=== PATIENT | male | born 1950 | race Caucasian/White ===

== ENCOUNTER → 2016-09-06 | Outpatient (CLI) | payer MEDICARE, BC ==
[~2016-09-06] MED LIST: ASPI-515 GT; MORP20SO PO
== END | disposition home or self-care (01) ==
LOC: PETCFH 09:27 → MERGE 09:30
PROVIDERS: ATTEND Internal Medicine Hematology & Oncology
DX: C15.5 Malignant neoplasm of lower third of esophagus (principal); K76.9 Liver disease, unspecified; I70.0 Atherosclerosis of aorta
CPT/HCPCS: 78815; A9552

== ENCOUNTER → 2016-11-01 | Outpatient (CLI) | payer MEDICARE, BC ==
[~2016-11-01] MED LIST changes: +SUCR1ORA5 PO
== END | disposition home or self-care (01) ==
LOC: EDSTATUS 10-27 14:44 → ROC 08:19
PROVIDERS: ATTEND Radiology Radiation Oncology
DX: C15.9 Malignant neoplasm of esophagus, unspecified (principal)
CPT/HCPCS: G0463

== ENCOUNTER 2016-11-04 06:39 | Inpatient (IN) | payer MEDICARE, BC, OTHER ==
[~2016-11-04] VITALS: Ht 182.9 cm; Wt 69.6 kg
[~2016-11-04 06:39] MED LIST changes: -SUCR1ORA5 PO
[2016-11-04] MEDS ORDERED: SUCR1ORA5 PO (07:12)
[2016-11-04] MEDS ORDERED: SODIUM CHLORIDE 0.9% 1,000ML IVBOLUS ONE (07:30)
[2016-11-04] MEDS ORDERED: SODIUM CHLORIDE FLUSH 10ML SYR IVF ONE (07:30)
[2016-11-04 07:44] LABS: HEMATOCRIT 39.8 % (39.2-51.8); HEMOGLOBIN 13.8 g/dL (13.7-18.0); WHITE BLOOD COUNT 5.9 x10^3/uL (3.4-10)
[2016-11-04 07:58] LABS: ASPARTATE AMINO TRANSFERASE 20 U/L (15-37); BLOOD UREA NITROGEN 6 mg/dL (7-18)
[2016-11-04] MEDS ORDERED: ONDANSETRON 2MG/ML, 2ML IVPush ONE (08:30)
[2016-11-04] MEDS ORDERED: MORPHINE SULFATE 4 MG/ML, 1ML IVPush PRN (08:30)
[2016-11-04] MEDS ORDERED: MORPHINE SULFATE 4 MG/ML, 1ML ONE (08:32)
[2016-11-04] MEDS ORDERED: ONDANSETRON 2MG/ML, 2ML ONE (08:33)
[2016-11-04] MEDS ORDERED: OMNIPAQUE 350 MG/ML, 100ML BOTTLE ONE (08:53)
[2016-11-04] MEDS ORDERED: SODIUM CHLORIDE 0.9% 1,000 ML IV ONE (09:38)
[2016-11-04] MEDS ORDERED: HEPARIN 25,000 UNITS/500ML PMX 500 ML ONE (09:47)
[2016-11-04] MEDS ORDERED: HEPARIN 25,000 UNITS/500ML PMX 500 ML IV PRN (10:00)
[2016-11-04] MEDS ORDERED: HEPARIN 5,000 UNITS/ML, 1ML IV PRN (10:00)
[2016-11-04] MEDS ORDERED: HEPARIN 5,000 UNITS/ML, 1ML IV ONE (10:00)
[2016-11-04] MEDS ORDERED: HEPARIN 5,000 UNITS/ML, 1ML ONE (10:14)
[2016-11-04] MEDS ORDERED: ACETAMINOPHEN 325 MG TABLET PO PRN (11:00)
[2016-11-04] MEDS ORDERED: HYDROcodone/APAP 5/325 TABLET PO PRN (11:00)
[2016-11-04] MEDS ORDERED: POLYETHYLENE GLYCOL 17 GM PACKET PO PRN (11:00)
[2016-11-04] MEDS ORDERED: ONDANSETRON 2MG/ML, 2ML IVPush PRN (11:00)
[2016-11-04] MEDS ORDERED: DOCUSATE 100 MG CAPSULE PO PRN (11:00)
[2016-11-04] MEDS ORDERED: LABETALOL 5MG/ML, 20ML IVPush PRN (11:00)
[2016-11-04] MEDS ORDERED: BISACODYL 10 MG SUPP PR PRN (11:00)
[2016-11-04] MEDS: ENOXAPARIN 60 MG/0.6 ML SQ SCH (12:52)
[2016-11-04 13:05] VITALS: BP 105/69
[2016-11-04 13:44] VITALS: BP 114/68
[2016-11-04] MEDS: SUCRALFATE 1 GM/10 ML UDC PO SCH ×2 (16:15→21:04)
[2016-11-04] MEDS: morphine SULFATE 10 MG/ML, 1ML IVPush PRN ×2 (18:18→21:04)
[2016-11-04 20:02] VITALS: BP 122/76
[2016-11-04] MEDS: SODIUM CHLORIDE FLUSH 10ML SYR IVF SCH (21:05)
[2016-11-05 01:03] VITALS: BP 121/73
[2016-11-05 01:15] VITALS: BP 103/64
[2016-11-05] MEDS: ENOXAPARIN 60 MG/0.6 ML SQ SCH ×2 (01:19→13:05)
[2016-11-05] MEDS: morphine SULFATE 10 MG/ML, 1ML IVPush PRN ×5 (01:19→21:48)
[2016-11-05 04:57] LABS: BLOOD UREA NITROGEN 9 mg/dL (7-18)
[2016-11-05 05:14] LABS: HEMATOCRIT 35.1 % (39.2-51.8); WHITE BLOOD COUNT 7.9 x10^3/uL (3.4-10)
[2016-11-05 07:40] VITALS: BP 103/68
[2016-11-05] MEDS: ASPIRIN 81 MG TABLET EC PO SCH (08:56)
[2016-11-05] MEDS: SODIUM CHLORIDE FLUSH 10ML SYR IVF SCH ×2 (08:56→20:23)
[2016-11-05] MEDS: SUCRALFATE 1 GM/10 ML UDC PO SCH ×3 (08:56→20:23)
[2016-11-05 14:00] VITALS: BP 113/60
[2016-11-05] MEDS ORDERED: ALBUTEROL/IPRATROPIUM 2.5MG/0.5MG, 3 ML ONE (21:14)
[2016-11-05 21:24] VITALS: BP 104/62
[2016-11-05] MEDS ORDERED: ALBUTEROL/IPRATROPIUM 2.5MG/0.5MG, 3 ML NPPB PRN (21:30)
[2016-11-05] MEDS: ALBUTEROL/IPRATROPIUM 2.5MG/0.5MG, 3 ML NPPB SCH (21:30)
[2016-11-06] MEDS: ENOXAPARIN 60 MG/0.6 ML SQ SCH ×2 (01:04→12:05)
[2016-11-06 01:08] VITALS: BP 106/64
[2016-11-06 05:02] LABS: HEMATOCRIT 35.2 % (39.2-51.8); WHITE BLOOD COUNT 12.2 x10^3/uL (3.4-10)
[2016-11-06 05:18] LABS: BLOOD UREA NITROGEN 8 mg/dL (7-18)
[2016-11-06 05:38] LABS: DIFF TOTAL CELLS COUNTED 100 CELL DIFF
[2016-11-06 05:40] LABS: VERIFY COUNTS? YES
[2016-11-06 05:41] LABS: ANISOCYTOSIS 1+; POLYCHROMASIA 1+
[2016-11-06] MEDS: ALBUTEROL/IPRATROPIUM 2.5MG/0.5MG, 3 ML NPPB SCH ×4 (06:29→18:32)
[2016-11-06 07:24] VITALS: BP 117/59
[2016-11-06] MEDS: SODIUM CHLORIDE FLUSH 10ML SYR IVF SCH ×2 (08:07→20:49)
[2016-11-06] MEDS: ASPIRIN 81 MG TABLET EC PO SCH (08:07)
[2016-11-06] MEDS: SUCRALFATE 1 GM/10 ML UDC PO SCH ×3 (08:07→20:49)
[2016-11-06 16:58] VITALS: BP 107/57
[2016-11-06 18:30] VITALS: BP 98/53
[2016-11-07] MEDS: ENOXAPARIN 60 MG/0.6 ML SQ SCH ×2 (01:04→12:05)
[2016-11-07 01:06] VITALS: BP 103/62
[2016-11-07 05:41] LABS: BLOOD UREA NITROGEN 7 mg/dL (7-18)
[2016-11-07 05:43] LABS: HEMATOCRIT 31.9 % (39.2-51.8); HEMOGLOBIN 10.8 g/dL (13.7-18.0); WHITE BLOOD COUNT 7.8 x10^3/uL (3.4-10)
[2016-11-07] MEDS: ALBUTEROL/IPRATROPIUM 2.5MG/0.5MG, 3 ML NPPB SCH ×4 (06:17→18:45)
[2016-11-07 07:44] VITALS: BP 100/57
[2016-11-07] MEDS: ASPIRIN 81 MG TABLET EC PO SCH (07:57)
[2016-11-07] MEDS: SUCRALFATE 1 GM/10 ML UDC PO SCH ×3 (07:57→21:07)
[2016-11-07] MEDS: SODIUM CHLORIDE FLUSH 10ML SYR IVF SCH ×2 (07:57→21:00)
[2016-11-07] MEDS ORDERED: MAGNESIUM SULFATE PMX 2GM/50ML 50 ML IV ONE (11:30)
[2016-11-07 20:39] VITALS: BP 108/63
[2016-11-08 01:45] VITALS: BP 109/64
[2016-11-08] MEDS: ENOXAPARIN 60 MG/0.6 ML SQ SCH (05:58)
[2016-11-08 06:50] VITALS: BP 102/61
[2016-11-08] MEDS: ALBUTEROL/IPRATROPIUM 2.5MG/0.5MG, 3 ML NPPB SCH ×2 (07:00→10:29)
[2016-11-08 08:26] LABS: HEMATOCRIT 33.6 % (39.2-51.8); HEMOGLOBIN 11.3 g/dL (13.7-18.0); WHITE BLOOD COUNT 5.6 x10^3/uL (3.4-10)
[2016-11-08 08:36] LABS: BLOOD UREA NITROGEN 7 mg/dL (7-18)
[2016-11-08] MEDS: SODIUM CHLORIDE FLUSH 10ML SYR IVF SCH (08:38)
[2016-11-08] MEDS: ASPIRIN 81 MG TABLET EC PO SCH (08:38)
[2016-11-08] MEDS: SUCRALFATE 1 GM/10 ML UDC PO SCH (08:38)
[2016-11-08] MEDS ORDERED: ENOX60SY4 SQ (10:35)
== END 2016-11-08 12:39 | disposition home health service (06) | DRG 175 ==
LOC: ED 08:59 → EDIP 09:50 → 4WST 11:06
PROVIDERS: ADMIT Internal Medicine; ATTEND Internal Medicine
DX: I26.99 Other pulmonary embolism without acute cor pulmonale (principal); J96.01 Acute respiratory failure with hypoxia; I47.2 Ventricular tachycardia; C15.9 Malignant neoplasm of esophagus, unspecified; J90 Pleural effusion, not elsewhere classified; D68.69 Other thrombophilia; K44.9 Diaphragmatic hernia without obstruction or gangrene; I11.9 Hypertensive heart disease without heart failure; J44.1 Chronic obstructive pulmonary disease with (acute) exacerbation; F17.210 Nicotine dependence, cigarettes, uncomplicated; I35.1 Nonrheumatic aortic (valve) insufficiency; Z80.0 Family history of malignant neoplasm of digestive organs; Z86.73 Personal history of transient ischemic attack (TIA), and cerebral infarction without residual deficits; Z92.21 Personal history of antineoplastic chemotherapy; Z92.3 Personal history of irradiation; Z87.01 Personal history of pneumonia (recurrent); Z89.431 Acquired absence of right foot
CPT/HCPCS: 36415; 71275; 74022; 80048; 80053; 83605; 83690; 83735; 84145; 85025; 85520; 85610; 87040; 93005; 93306; 93970; 94640; J1644; J1650; J2405; J7620; Q9967; J2270; J3475; J7030

== ENCOUNTER → 2016-11-15 | Outpatient (CLI) | payer MEDICARE, BC ==
[~2016-11-15] MED LIST changes: +ASPI-496 PO; +ENOX60SY4 SC; +ENOX60SY4 SQ; +SUCR1ORA5 PO
== END ==
LOC: STAR 09:10
PROVIDERS: ATTEND Internal Medicine
DX: Z02.9 Encounter for administrative examinations, unspecified (principal)

== ENCOUNTER 2016-11-20 11:16 | Day surgery (SDC) | payer MEDICARE, BC ==
[~2016-11-20] VITALS: Ht 182.9 cm; Wt 66.5 kg
[2016-11-20 11:41] VITALS: BP 133/96
[2016-11-20] MEDS ORDERED: LACTATED RINGERS 1,000 ML IV SCH (11:47)
[2016-11-20] MEDS ORDERED: LIDOCAINE 1%, 2ML SQ PRN (12:00)
[2016-11-20] MEDS ORDERED: PROPOFOL 10 MG/ML, 20ML ONE (13:19)
== END 2016-11-20 15:15 ==
LOC: OUT 11:16
PROVIDERS: ATTEND Internal Medicine
DX: C15.9 Malignant neoplasm of esophagus, unspecified (principal); F17.200 Nicotine dependence, unspecified, uncomplicated; K31.89 Other diseases of stomach and duodenum
CPT/HCPCS: 43237; 43239; 88305; 88312; J2704; J3490; J7120

== ENCOUNTER → 2016-11-22 | Outpatient (CLI) | payer MEDICARE, BC ==
[~2016-11-22] MED LIST changes: +OMNIPAQUE 350 MG/ML, 100ML BOTTLE ONE
== END | disposition home or self-care (01) ==
LOC: CFH 11:46
PROVIDERS: ATTEND Internal Medicine Hematology & Oncology
DX: K76.89 Other specified diseases of liver (principal); I70.0 Atherosclerosis of aorta; I26.99 Other pulmonary embolism without acute cor pulmonale; R91.8 Other nonspecific abnormal finding of lung field; C15.5 Malignant neoplasm of lower third of esophagus
CPT/HCPCS: 71260; 74177; Q9967

== ENCOUNTER → 2016-12-07 | Outpatient (CLI) | payer MEDICARE, BC ==
[~2016-12-07] MED LIST changes: -OMNIPAQUE 350 MG/ML, 100ML BOTTLE ONE
== END | disposition home or self-care (01) ==
LOC: PETCFH 08:53
PROVIDERS: ATTEND Internal Medicine Hematology & Oncology
DX: C15.5 Malignant neoplasm of lower third of esophagus (principal); J98.4 Other disorders of lung
CPT/HCPCS: 78815; A9552

== ENCOUNTER → 2017-06-03 | Outpatient (CLI) | payer MEDICARE ==
[~2017-06-03] MED LIST changes: +NONE PER PT
== END ==
LOC: CFH 08:42
PROVIDERS: ATTEND Internal Medicine Hematology & Oncology
DX: C15.5 Malignant neoplasm of lower third of esophagus (principal); K76.9 Liver disease, unspecified
CPT/HCPCS: 71260; 74177; 82565

== ENCOUNTER 2017-09-15 12:16 | Inpatient (IN) | payer MEDICARE ==
[~2017-09-15] VITALS: Ht 182.9 cm; Wt 71.7 kg
[2017-09-15 12:58] LABS: MEAN CORPUSCULAR HEMOGLOBIN 40.7 pg (27.5-34.5); MEAN CORPUSCULAR VOLUME 119.9 fL (81-97); MEAN PLATELET VOLUME 6.8 fL (7.4-10.4); PLATELET COUNT 531 x10^3/uL (130-400); RED BLOOD COUNT 3.44 x10^6/uL (4.38-5.82); RED CELL DISTRIBUTION WIDTH 15.9 % (9.4-14.8)
[2017-09-15 13:08] LABS: ALBUMIN 2.3 g/dL (3.4-5.0); CALCIUM 8.4 mg/dL (8.5-10.1); CHLORIDE 96 mmol/L (98-107); CREATININE 0.47 mg/dL (0.7-1.3)
[2017-09-15 13:16] LABS: ANION GAP 8 mmol/L (5-15)
[2017-09-15 13:26] LABS: BASOPHILS # (AUTO) 0.08 x10^3/uL (0-0.1); BASOPHILS % (AUTO) 1 % (0-1); EOSINOPHILS # (AUTO) 0.01 x10^3/uL (0-0.4); EOSINOPHILS % (AUTO) 0 % (1-7); LYMPHOCYTES # (AUTO) 1.06 x10^3/uL (1-3.4); LYMPHOCYTES % (AUTO) 10 % (22-44); MD MORPH REVIEW ONLY; MONOCYTES # (AUTO) 0.68 x10^3/uL (0.2-0.8); MONOCYTES % (AUTO) 6 % (2-9); NEUTROPHILS # (AUTO) 9.27 x10^3/uL (1.8-6.8); NEUTROPHILS % (AUTO) 84 % (42-75)
[2017-09-15 13:28] LABS: <PLATELET ESTIMATE> INCREASED; <PLT MORPHOLOGY> NORMAL PLT MORPH; ANISOCYTOSIS 1+
[2017-09-15 13:29] LABS: INTERNATIONAL NORMALIZED RATIO 1.09 (0.93-1.1); PROTHROMBIN TIME 11.3 Seconds (9.6-11.5)
[2017-09-15] MEDS ORDERED: OMNIPAQUE 350 MG/ML, 100ML BOTTLE ONE (15:12)
[2017-09-15] MEDS ORDERED: ALBUTEROL/IPRATROPIUM 2.5MG/0.5MG, 3 ML ONE (15:53)
[2017-09-15] MEDS ORDERED: ALBUTEROL/IPRATROPIUM 2.5MG/0.5MG, 3 ML NPPB ONE (16:00)
[2017-09-15] MEDS ORDERED: HEPARIN 5,000 UNITS/ML, 1ML IV ONE (16:00)
[2017-09-15] MEDS ORDERED: AZITHROMYCIN 500 MG in SODIUM CHLORIDE 0.9% 250 ML IV ONE (16:00)
[2017-09-15] MEDS ORDERED: HEPARIN 25,000 UNITS/500ML PMX 500 ML ONE (16:02)
[2017-09-15] MEDS ORDERED: HEPARIN 5,000 UNITS/ML, 1ML ONE (16:02)
[2017-09-15] MEDS ORDERED: CEFTRIAXONE PMX 1GM/50ML 50 ML ONE (16:04)
[2017-09-15] MEDS: HEPARIN 25,000 UNITS/500ML PMX 500 ML IV PRN (16:22)
[2017-09-15] MEDS ORDERED: DOCUSATE 100 MG CAPSULE PO PRN (17:00)
[2017-09-15] MEDS ORDERED: BISACODYL 10 MG SUPP PR PRN (17:00)
[2017-09-15] MEDS ORDERED: ONDANSETRON 2MG/ML, 2ML IVPush PRN (17:00)
[2017-09-15] MEDS ORDERED: LABETALOL 5MG/ML, 20ML IVPush PRN (17:00)
[2017-09-15] MEDS ORDERED: POLYETHYLENE GLYCOL 17 GM PACKET PO PRN (17:00)
[2017-09-15] MEDS ORDERED: ACETAMINOPHEN 325 MG TABLET PO PRN (17:00)
[2017-09-15] MEDS ORDERED: CEFTRIAXONE 1,000 MG in SODIUM CHLORIDE 0.9% 50 ML IV ONE (17:00)
[2017-09-15 17:10] VITALS: BP 118/74
[2017-09-15] MEDS: DOXYCYCLINE 100 MG in DEXTROSE 5% 250 ML IV SCH (18:43)
[2017-09-15 20:29] LABS: TROPONIN I 0.022 ng/mL (0.000-0.045)
[2017-09-15 21:14] VITALS: BP 100/65
[2017-09-15] MEDS: SODIUM CHLORIDE FLUSH 10ML SYR IVF SCH (21:19)
[2017-09-15 22:01] VITALS: BP 101/66
[2017-09-15] MEDS ORDERED: MAGNESIUM SULFATE PMX 2GM/50ML 50 ML IV ONE (22:30)
[2017-09-15] MEDS: HEPARIN 5,000 UNITS/ML, 1ML IV PRN (23:50)
[2017-09-16 00:49] VITALS: BP 102/66
[2017-09-16 02:34] LABS: MEAN CORPUSCULAR HEMOGLOBIN 40.2 pg (27.5-34.5); MEAN CORPUSCULAR HGB CONC 33.7 g/dL (33.2-36.2); MEAN CORPUSCULAR VOLUME 119.2 fL (81-97); MEAN PLATELET VOLUME 6.9 fL (7.4-10.4); PLATELET COUNT 502 x10^3/uL (130-400); RED BLOOD COUNT 3.16 x10^6/uL (4.38-5.82); RED CELL DISTRIBUTION WIDTH 15.5 % (9.4-14.8)
[2017-09-16 02:44] LABS: ANION GAP 6 mmol/L (5-15); CALCIUM 8.1 mg/dL (8.5-10.1); CHLORIDE 98 mmol/L (98-107); CREATININE 0.31 mg/dL (0.7-1.3)
[2017-09-16 02:50] LABS: BASOPHILS # (AUTO) 0.06 x10^3/uL (0-0.1); BASOPHILS % (AUTO) 1 % (0-1); EOSINOPHILS # (AUTO) 0.04 x10^3/uL (0-0.4); EOSINOPHILS % (AUTO) 1 % (1-7); LYMPHOCYTES # (AUTO) 1.29 x10^3/uL (1-3.4); LYMPHOCYTES % (AUTO) 18 % (22-44); MD SCAN; MONOCYTES # (AUTO) 0.64 x10^3/uL (0.2-0.8); MONOCYTES % (AUTO) 9 % (2-9); NEUTROPHILS # (AUTO) 5.14 x10^3/uL (1.8-6.8); NEUTROPHILS % (AUTO) 72 % (42-75)
[2017-09-16 02:54] LABS: TROPONIN I 0.045 ng/mL (0.000-0.045)
[2017-09-16] MEDS: DOXYCYCLINE 100 MG in DEXTROSE 5% 250 ML IV SCH ×2 (06:39→20:58)
[2017-09-16 06:40] VITALS: BP 99/58
[2017-09-16] MEDS: ALBUTEROL/IPRATROPIUM 2.5MG/0.5MG, 3 ML NPPB SCH ×4 (06:49→20:03)
[2017-09-16] MEDS: HEPARIN 5,000 UNITS/ML, 1ML IV PRN ×3 (07:12→20:58)
[2017-09-16] MEDS ORDERED: POTASSIUM CHLORIDE 20 MEQ TAB.ER.PRT ONE (09:29)
[2017-09-16] MEDS: THIAMINE 100MG TABLET PO SCH (09:31)
[2017-09-16] MEDS: POTASSIUM CHLORIDE 20 MEQ TAB.ER.PRT PO SCH ×2 (09:32→16:41)
[2017-09-16] MEDS: MULTIVITAMIN 1 TABLET PO SCH (09:32)
[2017-09-16] MEDS: FOLIC ACID 1 MG TABLET PO SCH (09:32)
[2017-09-16] MEDS: SODIUM CHLORIDE FLUSH 10ML SYR IVF SCH ×2 (09:41→21:00)
[2017-09-16 12:40] VITALS: BP 107/70
[2017-09-16] MEDS ORDERED: CEFTRIAXONE 1,000 MG in SODIUM CHLORIDE 0.9% 50 ML IV SCH (16:25)
[2017-09-16] MEDS ORDERED: POTASSIUM CHLORIDE 20 MEQ TAB.ER.PRT PO SCH (17:00)
[2017-09-16 18:31] VITALS: BP 108/69
[2017-09-16] MEDS: HEPARIN 25,000 UNITS/500ML PMX 500 ML IV PRN (18:56)
[2017-09-17 00:35] VITALS: BP 96/67
[2017-09-17 03:16] LABS: MEAN CORPUSCULAR HEMOGLOBIN 40.7 pg (27.5-34.5); MEAN CORPUSCULAR VOLUME 119.8 fL (81-97); MEAN PLATELET VOLUME 6.6 fL (7.4-10.4); PLATELET COUNT 498 x10^3/uL (130-400); RED BLOOD COUNT 3.03 x10^6/uL (4.38-5.82); RED CELL DISTRIBUTION WIDTH 16.1 % (9.4-14.8)
[2017-09-17 03:29] LABS: ANION GAP 6 mmol/L (5-15); CALCIUM 8.3 mg/dL (8.5-10.1); CHLORIDE 100 mmol/L (98-107); CREATININE 0.37 mg/dL (0.7-1.3)
[2017-09-17 03:47] LABS: BASOPHILS # (AUTO) 0.06 x10^3/uL (0-0.1); BASOPHILS % (AUTO) 1 % (0-1); EOSINOPHILS # (AUTO) 0.05 x10^3/uL (0-0.4); EOSINOPHILS % (AUTO) 1 % (1-7); LYMPHOCYTES % (AUTO) 20 % (22-44); MD SCAN; MONOCYTES # (AUTO) 0.57 x10^3/uL (0.2-0.8); MONOCYTES % (AUTO) 9 % (2-9); NEUTROPHILS # (AUTO) 4.19 x10^3/uL (1.8-6.8); NEUTROPHILS % (AUTO) 69 % (42-75)
[2017-09-17] MEDS: HEPARIN 5,000 UNITS/ML, 1ML IV PRN (03:48)
[2017-09-17] MEDS: ALBUTEROL/IPRATROPIUM 2.5MG/0.5MG, 3 ML NPPB SCH ×3 (06:20→14:16)
[2017-09-17 06:25] VITALS: BP 111/73
[2017-09-17] MEDS ORDERED: APIXABAN 5 MG TABLET PO SCH (09:00)
[2017-09-17] MEDS: THIAMINE 100MG TABLET PO SCH (09:58)
[2017-09-17] MEDS: FOLIC ACID 1 MG TABLET PO SCH (09:58)
[2017-09-17] MEDS: MULTIVITAMIN 1 TABLET PO SCH (09:58)
[2017-09-17] MEDS: DOXYCYCLINE 100 MG in DEXTROSE 5% 250 ML IV SCH (10:02)
[2017-09-17] MEDS: SODIUM CHLORIDE FLUSH 10ML SYR IVF SCH (10:02)
[2017-09-17 10:13] VITALS: BP 107/65
[2017-09-17] MEDS ORDERED: FOLI-17 PO (11:46)
[2017-09-17] MEDS ORDERED: THIA100T6 PO (11:46)
[2017-09-17] MEDS ORDERED: APIX5TAB PO (11:46)
[2017-09-17] MEDS ORDERED: MULT1TAB60 PO (11:46)
[2017-09-17] MEDS ORDERED: DOXY100T PO (11:50)
[2017-09-17] MEDS ORDERED: CEFD300C37 PO (11:50)
[2017-09-17 12:05] VITALS: BP 92/55
== END 2017-09-17 16:56 | disposition home or self-care (01) | DRG 175 ==
LOC: ED 12:38 → 5SO 16:33
PROVIDERS: ADMIT Internal Medicine; ATTEND Family Medicine
DX: I26.99 Other pulmonary embolism without acute cor pulmonale (principal); J96.01 Acute respiratory failure with hypoxia; J18.9 Pneumonia, unspecified organism; J44.0 Chronic obstructive pulmonary disease with (acute) lower respiratory infection; I82.411 Acute embolism and thrombosis of right femoral vein; J90 Pleural effusion, not elsewhere classified; E44.0 Moderate protein-calorie malnutrition; I82.431 Acute embolism and thrombosis of right popliteal vein; J98.11 Atelectasis; R00.0 Tachycardia, unspecified; R79.89 Other specified abnormal findings of blood chemistry; F17.210 Nicotine dependence, cigarettes, uncomplicated; Z66 Do not resuscitate; I11.9 Hypertensive heart disease without heart failure; Z85.01 Personal history of malignant neoplasm of esophagus; Z86.73 Personal history of transient ischemic attack (TIA), and cerebral infarction without residual deficits; Z92.21 Personal history of antineoplastic chemotherapy; Z68.21 Body mass index [BMI] 21.0-21.9, adult
CPT/HCPCS: 36415; 71046; 71275; 80048; 82040; 83735; 83880; 84484; 85025; 85520; 85610; 87040; 87070; 87077; 87186; 87205; 93005; 93306; 93970; 94640; J0696; J1644; J7060; J7620; Q9967; J3475

== ENCOUNTER → 2017-11-26 | Outpatient (CLI) | payer MEDICARE ==
[~2017-11-26] MED LIST changes: +APIX5TAB PO; +CEFD300C37 PO; +DOXY100T PO; +FOLI-17 PO; +MULT1TAB60 PO; +OMNIPAQUE 350 MG/ML, 100ML BOTTLE ONE; +THIA100T67 PO
== END | disposition home or self-care (01) ==
LOC: CFH 08:42
PROVIDERS: ATTEND Internal Medicine Hematology & Oncology
DX: R59.9 Enlarged lymph nodes, unspecified (principal); J98.11 Atelectasis; K76.9 Liver disease, unspecified
CPT/HCPCS: 71260; 74177; 82565; Q9967

== ENCOUNTER → 2018-06-13 | Outpatient (CLI) | payer MEDICARE | END | disposition home or self-care (01) | LOC: CFH 08:06 | PROVIDERS: ATTEND Internal Medicine Hematology & Oncology | DX: C15.5 Malignant neoplasm of lower third of esophagus (principal); I70.0 Atherosclerosis of aorta; R91.8 Other nonspecific abnormal finding of lung field; I51.7 Cardiomegaly; N40.0 Benign prostatic hyperplasia without lower urinary tract symptoms; M47.816 Spondylosis without myelopathy or radiculopathy, lumbar region; M17.0 Bilateral primary osteoarthritis of knee | CPT/HCPCS: 71260; 74177; Q9967 ==

== ENCOUNTER → 2018-08-11 | Outpatient (CLI) | payer MEDICARE ==
[~2018-08-11] MED LIST changes: -OMNIPAQUE 350 MG/ML, 100ML BOTTLE ONE; +OMNIPAQUE 350 MG/ML, 75ML BOTTLE ONE
== END | disposition home or self-care (01) ==
LOC: CFH 12:07
PROVIDERS: ATTEND Internal Medicine Hematology & Oncology
DX: C15.5 Malignant neoplasm of lower third of esophagus (principal); J98.4 Other disorders of lung; R91.8 Other nonspecific abnormal finding of lung field; K76.89 Other specified diseases of liver
CPT/HCPCS: 71260; Q9967

== ENCOUNTER → 2018-08-22 | Outpatient (CLI) | payer MEDICARE ==
[~2018-08-22] MED LIST changes: -OMNIPAQUE 350 MG/ML, 75ML BOTTLE ONE
== END | disposition home or self-care (01) ==
LOC: PETCFH 08:25
PROVIDERS: ATTEND Internal Medicine Hematology & Oncology
DX: C15.5 Malignant neoplasm of lower third of esophagus (principal); R22.1 Localized swelling, mass and lump, neck; J90 Pleural effusion, not elsewhere classified
CPT/HCPCS: 78815; A9552